=== PATIENT | male | born 1935 | race Caucasian/White ===

== ENCOUNTER → 2016-05-24 | Outpatient (CLI) | payer MEDICARE | LOC: PCVCCLINIC 11:00 | PROVIDERS: ATTEND Internal Medicine Cardiovascular Disease | DX: I10 Essential (primary) hypertension (principal); E78.00 Pure hypercholesterolemia, unspecified; E78.1 Pure hyperglyceridemia; R00.2 Palpitations; R06.00 Dyspnea, unspecified; K21.9 Gastro-esophageal reflux disease without esophagitis | CPT/HCPCS: 80061; 93005; G0463 ==

== ENCOUNTER → 2017-02-23 | Outpatient (CLI) | payer MEDICARE ==
--- NOTE | 2017-02-24 11:40 | PCVCIMAG ---
APPROVED REPORT Exam: Stress Echocardiogram Indication: Dyspnea , Palpitations , Hypertension, Hyperlipidemia Patient Location: Echo lab Stress Nurse: Melanie Guillen RN Room #: 2 Status: routine Ht: 5 ft 10 in HR: 68 bpm BP: 140/70 mmHg Rhythm: NSR Medical History Medical History: HTN, Hyperlipidemia Medications: BYSTOLIC Cardiac Risk Factors: HTN, Hyperlipidemia Pretest Chest Pain Characteristics: No chest pain Exercise History: Physically active Procedure The patient underwent an Exercise Stress Test using the Jean Marie Protocol. Blood pressure, heart rate, and EKG were monitored. An Echocardiogram was performed by permit technician in four stages in quad fashion. At peak stress, four selected images were obtained and placed side by side with resting images for comparison. Stress Test Details Stress Test: Exercise stress testing was performed using a Jean Marie protocol. HR Resting HR: 68 bpmMax Heart Rate (APMHR): 137 bpm Max HR Achieved: 131 bpmTarget HR (85% APMHR): 116 bpm % of APMHR: 95 Recovery HR: 70 bpm HR response to stress: Normal HR response to stress BP Resting BP: 140/70 mmHg Max BP: 160/80 mmHg Recovery BP: 138/76 mmHg ECG Resting ECG: Sinus Rhythm Stress ECG: Sinus Rhythm ST Change: Non-ischemic Maximum ST Deviation: 0.25 mm Arrhythmia: Rare PVCs Recovery ECG: Sinus Rhythm Recovery ST Change: Non-ischemic Recovery ST Deviation: 0.30 mm Recovery Arrhythmia: None Clinical Reason for Termination: Maximal effort Stress Symptoms: none Exercise duration: 6 min 03 sec Exercise capacity: 7.1 METs Angina Score: None No complications. Stress ECG Conclusion The patient exercised according to the Jean Marie protocol for 6:03 mins; achieving a work level of 7.1 METS. The resting heart rate of 68 bpm monster to a maximal heart rate of 131 bpm. This value represents 95% of the maximal, age-predicted heart rate. The resting blood pressure of 140/70 mmHg, monster to a maximum of 160/80 mmHg. The exercise test was stopped due to fatigue. Guerra Treadmill Score is 4.8 which is Moderate risk. Pre-Stress Echo The resting Echocardiogram showed normal left ventricular contractility with an estimated Ejection Fraction of about 55-60%. Normal wall motion in all segments on baseline images. Post-Stress Echo The stress Echocardiogram showed normal left ventricular contractility with an estimated Ejection Fraction of about 60-65%. Normal augmentation of wall motion in all segments on post stress images. Clinical No clinical or ECG evidence for ischemia. Conclusion Clinical Response: Non-ischemic Exercise Capacity: Average Stress ECG Response: Non-ischemic Stress Echo Images: Non-ischemic No clinical, EKG or echocardiographic evidence for ischemia. No echocardiographic evidence for exercise induced ischemia. Normal stress echocardiogram with maximal exercise stress. <Conclusion> No clinical, EKG or echocardiographic evidence for ischemia. No echocardiographic evidence for exercise induced ischemia. Normal stress echocardiogram with maximal exercise stress.
== END | disposition home or self-care (01) ==
LOC: PCVCIMAG 10:03
PROVIDERS: ATTEND Internal Medicine Cardiovascular Disease
DX: I49.3 Ventricular premature depolarization (principal); I10 Essential (primary) hypertension; E78.00 Pure hypercholesterolemia, unspecified; M19.90 Unspecified osteoarthritis, unspecified site
CPT/HCPCS: 93325; 93351

== ENCOUNTER → 2017-10-18 | Outpatient (CLI) | payer MEDICARE | END | disposition home or self-care (01) | LOC: PCVCCLINIC 12:05 | DX: I10 Essential (primary) hypertension (principal); E78.00 Pure hypercholesterolemia, unspecified; R00.2 Palpitations; M54.5 Low back pain; R06.00 Dyspnea, unspecified; R09.89 Other specified symptoms and signs involving the circulatory and respiratory systems; Z87.891 Personal history of nicotine dependence; Z79.899 Other long term (current) drug therapy; Z79.82 Long term (current) use of aspirin | CPT/HCPCS: 93005; G0463 ==

== ENCOUNTER → 2018-08-21 | Outpatient (CLI) | payer MEDICARE ==
--- NOTE | 2018-08-21 12:19 | PCVCIMAG ---
APPROVED REPORT Laterality: Bilateral Doppler Spectral Velocity Analysis PSV / EDVPSV / EDV ECA (R) 74 / 10 cm/sECA (L) 81 / 6 cm/s dICA (R) 43 / 14 cm/sdICA (L) 35 / 12 cm/s Mik (R) 60 / 17 cm/smICA (L) 47 / 14 cm/s pICA (R) 51 / 16 cm/spICA (L) 48 / 13 cm/s Bulb (R) 63 / 17 cm/sBulb (L) 75 / 14 cm/s dCCA (R) 76 / 14 cm/sdCCA (L) 69 / 15 cm/s mCCA (R) 80 / 15 cm/smCCA (L) 87 / 15 cm/s Vert (R) 33 / 9 cm/sVert (L) 50 / 11 cm/s ICA/CCA 0.79ICA/CCA 0.70 Findings The right carotid bulb has minimal plaque. The right proximal internal carotid artery shows no significant stenosis. The right common carotid artery shows no significant stenosis. The right external carotid artery shows no significant stenosis. The left carotid bulb has minimal plaque. The left proximal internal carotid artery shows no significant stenosis. The left common carotid artery shows no significant stenosis. The left external carotid artery shows no significant stenosis. Conclusion 1. Minimal bilateral plaquing without significant stenosis. 2. Antegrade vertebral flow.
== END | disposition home or self-care (01) ==
LOC: PCVCIMAG 10:36
PROVIDERS: ATTEND Internal Medicine Cardiovascular Disease
DX: I65.23 Occlusion and stenosis of bilateral carotid arteries (principal); I10 Essential (primary) hypertension; E78.00 Pure hypercholesterolemia, unspecified; R00.2 Palpitations; Z79.82 Long term (current) use of aspirin
CPT/HCPCS: 93005; 93880; G0463

== ENCOUNTER → 2019-03-19 | Outpatient (CLI) | payer MEDICARE ==
--- NOTE | 2019-03-19 13:11 | PCVCIMAG ---
APPROVED REPORT Study performed: 03/19/2019 10:30:13 Exam: Stress Echocardiogram Indication: Hyperlipidemia, Hypertension, Chest pain , Palpitations Patient Location: Echo lab Stress Nurse: Maria Alejandra Coates RN Room #: 2 Status: routine Ht: 5 ft 9 in HR: 60 bpm BP: 136/72 mmHg Rhythm: NSR Procedure The patient underwent an Exercise Stress Test using the Jean Marie Protocol. Blood pressure, heart rate, and EKG were monitored. An Echocardiogram was performed by instructor adjunct surgical technician in four stages in quad fashion. At peak stress, four selected images were obtained and placed side by side with resting images for comparison. Stress Test Details Stress Test: Exercise stress testing was performed using a Jean Marie protocol. HR Resting HR: 60 bpmMax Heart Rate (APMHR): 135 bpm Max HR Achieved: 130 bpmTarget HR (85% APMHR): 114 bpm % of APMHR: 96 Recovery HR: 75 bpm HR response to stress: Normal HR response to stress BP Resting BP: 13/72 mmHg Max BP: 162/82 mmHg Recovery BP: 146/78 mmHg BP response to stress: Normal blood pressure response to stress. ECG Resting ECG: Sinus Rhythm Stress ECG: Sinus Rhythm Arrhythmia: VPC's Recovery ECG: Sinus Rhythm Clinical Reason for Termination: Maximal effort, Dyspnea Exercise duration: 6 min 00 sec Highest Stage Achieved: Stage 2: 2.5 mph at 12% grade. Exercise capacity: 7.0 METs Overall Exercise Capacity for Age: Normal Stress ECG Conclusion ECG: Non-ischemic Clinical: Non-ischemic Pre-Stress Echo The resting Echocardiogram showed normal left ventricular contractility with an estimated Ejection Fraction of about >55%. Normal wall motion in all segments on baseline images. Post-Stress Echo The stress Echocardiogram showed normal left ventricular contractility with an estimated Ejection Fraction of about 60-65%. Normal augmentation of wall motion in all segments on post stress images. Clinical No clinical or ECG evidence for ischemia. Conclusion Clinical Response: Non-ischemic Exercise Capacity: Average Stress ECG Response: Non-ischemic Stress Echo Images: Non-ischemic No clinical, EKG or echocardiographic evidence for ischemia. Normal stress echocardiogram with maximal exercise stress. Doppler and color flow demonstrate trace pulmonic regurgitation, trace mitral regurgitation, and trace tricuspid regurgitation. The pulmonary artery pressure is 29 mmHg. Other Information Study Quality: Adequate <Conclusion> No clinical, EKG or echocardiographic evidence for ischemia. Normal stress echocardiogram with maximal exercise stress. Doppler and color flow demonstrate trace pulmonic regurgitation, trace mitral regurgitation, and trace tricuspid regurgitation. The pulmonary artery pressure is 29 mmHg.
== END | disposition home or self-care (01) ==
LOC: PCVCIMAG 10:30
PROVIDERS: ATTEND Internal Medicine Cardiovascular Disease
DX: I10 Essential (primary) hypertension (principal); E78.5 Hyperlipidemia, unspecified; R07.9 Chest pain, unspecified; E78.00 Pure hypercholesterolemia, unspecified; I65.23 Occlusion and stenosis of bilateral carotid arteries; R00.2 Palpitations
CPT/HCPCS: 93325; 93351